=== PATIENT | male | born 1980 | race Caucasian/White ===

== ENCOUNTER 2020-01-06 12:50 | Emergency (ER) | payer OTHER, SELFPAY ==
--- NOTE | 2020-01-06 13:23 | RAD REPORT ---
EXAM DESCRIPTION: RAD - Chest Single View - 01/06/2020 1:18 pm CLINICAL HISTORY: CHEST PAIN Chest pain. COMPARISON: CHEST PA AND LAT 2 VIEW dated 06/27/2012 FINDINGS: Portable technique limits examination quality. The lungs are grossly clear. The heart is normal in size. No displaced fractures. IMPRESSION: No acute intrathoracic process suspected.
[2020-01-06 13:45] LABS: Absolute Lymphocytes (CBC) 2.3 K/uL (0.7-4.9); Basophils % 0.7 % (0-1.3); Hematocrit 40.5 % (39.6-49.0); Lymphocytes % 25.7 % (15.3-44.8); MPV 8.9 fL (7.6-11.3)
[2020-01-06 14:01] LABS: ALT/SGPT 15 U/L (12-78); AST/SGOT 11 U/L (15-37); Albumin 3.6 g/dL (3.4-5.0); Alkaline Phosphatase 76 U/L (45-117); BUN Blood Urea Nitrogen 8 mg/dL (7-18); Bicarbonate 30 mmol/L (21-32); Bilirubin Direct 0.1 mg/dL (0-0.2); Bilirubin Total 0.3 mg/dL (0.2-1.0); Glucose Level 90 mg/dL (74-106); Lipase 309 U/L (73-393); Magnesium 2.2 mg/dL (1.8-2.4); NT PRO-BNP 59 pg/mL (<125); Protein, Total 7.3 g/dL (6.4-8.2); Sodium Level 141 mmol/L (136-145); Troponin (Emerg Dept Use Only) < 0.02 ng/mL (0.0-0.045)
[2020-01-06 14:45] LABS: Urine Blood NEGATIVE (NEG); Urine Glucose NEGATIVE (NEG); Urine Protein NEGATIVE (NEG); Urine Specific Gravity 1.015 (1.005-1.030)
[2020-01-06 15:01] LABS: Barbiturates NEGATIVE (NEGATIVE); Benzodiazepines NEGATIVE (NEGATIVE); Cocaine NEGATIVE (NEGATIVE); METHAMPHETAM NEGATIVE (NEGATIVE); Methadone NEGATIVE (NEGATIVE); Opiates NEGATIVE (NEGATIVE); Phencyclidine NEGATIVE (NEGATIVE); THC Cannibis POSITIVE (NEGATIVE)
--- NOTE | 2020-01-06 16:28 | ER ---
Nurse's Notes [facility] Name: Adalberto Squires Age: 40 yrs Sex: Male : 1980 Arrival Date: 01/06/2020 Time: 12:51 Bed 6 Private MD: Diagnosis: Chest pain, unspecified Presentation: 01/05 13:03 Chief complaint: Patient states: Chest pain, mid sternal started around 0800 today, ca1 radiating to the L arm as numbness. Reports sweating and SOB with CP. Denies cough, injury to the chest. Coronavirus screen: Client denies travel out of the [place] in the last 14 days. At this time, the client does not indicate any symptoms associated with coronavirus-19. Ebola Screen: Patient negative for fever greater than or equal to 101.5 degrees Fahrenheit, and additional compatible Ebola Virus Disease symptoms Patient denies exposure to infectious person. Patient denies travel to an Ebola-affected area in the 21 days before illness onset. No symptoms or risks identified at this time. Initial Sepsis Screen: Does the patient meet any 2 criteria? No. Patient's initial sepsis screen is negative. Does the patient have a suspected source of infection? No. Patient's initial sepsis screen is negative. Risk Assessment: Do you want to hurt yourself or someone else? Patient reports no desire to harm self or others. Onset of symptoms was January 06, 2020 at 08:00. 13:03 Method Of Arrival: Wheelchair ca1 13:03 Acuity: CORINNE 3 ca1 Triage Assessment: 13:05 General: Appears in no apparent distress. uncomfortable, Behavior is cooperative, bp appropriate for age, anxious. Pain: Complains of pain in chest. EENT: No deficits noted. Neuro: No deficits noted. Cardiovascular: Rhythm is sinus rhythm. Respiratory: No deficits noted. GI: No signs and/or symptoms were reported involving the gastrointestinal system. : No signs and/or symptoms were reported regarding the genitourinary system. Derm: No deficits noted. Musculoskeletal: No deficits noted. Historical: - Allergies: 13:05 Tape; ca1 - Home Meds: 13:05 None [Active]; ca1 - PMHx: 13:05 None; ca1 - PSHx: 13:05 None; ca1 - Immunization history:: Adult Immunizations up to date. - Social history:: Smoking status: Patient denies any tobacco usage or history of. Screenin:05 Abuse screen: Denies threats or abuse. Denies injuries from another. Nutritional bp screening: No deficits noted. Tuberculosis screening: No symptoms or risk factors identified. Fall Risk None identified. Assessment: 13:05 General: SEE TRIAGE NOTE. bp 14:15 Reassessment: PT OOB TO RESTROOM. ALL OTHER ORDERS COMPLETED, RESULTS UNREMARKABLE. bp 15:00 Reassessment: VS STABLE ON MONITOR, NO S/S ACUTE DISTRESS AT THIS TIME. bp 15:50 Reassessment: REPEAT TROP DRAWN AND SENT. VS STABLE. NO ACUTE S/S AT THIS TIME. bp 17:10 Reassessment: PT D/C HOME AMBULATORY, DX WITH NONSPECIFIC CHEST PAIN. bp Vital Signs: 13:03 BP 124 / 72; Pulse 77; Resp 16 S; Temp 97.3(TE); Pulse Ox 100% on R/A; Weight 68.04 kg ca1 (R); Height 5 ft. 5 in. (165.10 cm) (R); Pain 4/10; 14:00 BP 106 / 60; Pulse 88; Resp 17; Pulse Ox 100% ; bp 15:00 BP 99 / 76; Pulse 59; Resp 16; Pulse Ox 100% ; bp 15:50 BP 102 / 55; Pulse 63; Resp 17; Pulse Ox 100% ; bp 16:50 BP 109 / 82; Pulse 59; Resp 17; Temp 97.5; Pulse Ox 100% ; bp 13:03 Body Mass Index 24.96 (68.04 kg, 165.10 cm) ca1 ED Course: 12:51 Patient arrived in ED. as 12:54 Elroy Hirsch PA is PHCP. [facility] 12:54 Julian Velez MD is Attending Physician. jmm 13:04 Triage completed. ca1 13:05 Arm band placed on. EKG completed in triage. Results shown to MD. ca1 13:05 Patient has correct armband on for positive identification. Bed in low position. Call bp light in reach. Side rails up X2. environmental monitoring specialist on. Pulse ox on. NIBP on. 13:10 Guido Chavez, RN is Primary Nurse. bp 13:18 XRAY Chest (1 view) In Process Unspecified. EDMS 13:30 Inserted saline lock: 22 gauge in right antecubital area, using aseptic technique. rb1 Blood collected. 15:20 PHCP role handed off by Elroy Hirsch PA pm1 15:20 Julito Taylor NP is PHCP. pm1 17:10 No provider procedures requiring assistance completed. IV discontinued, intact, bp bleeding controlled, No redness/swelling at site. Pressure dressing applied. Patient maintains SpO2 saturation greater than 95% on room air. Administered Medications: No medications were administered Outcome: 16:27 Discharge ordered by MD. pm1 17:10 Discharged to home ambulatory, with family. bp 17:10 Condition: stable 17:10 Discharge instructions given to patient, Instructed on discharge instructions, follow up and referral plans. Demonstrated understanding of instructions, follow-up care. 17:15 Patient left the ED. bp Signatures: Dispatcher [employer] EDMS Elroy Hirsch PA PA jmm Martinez, Amelia as Barber, Rebecca RN RN rb1 Julito Taylor NP AEROSPACE ENGINEER OFFICER [employer] pm1 Guido Chavez RN RN bp Pauline Blum RN RN ca1 Corrections: (The following items were deleted from the chart) 14:18 14:00 BP 159 / 90; Pulse 56bpm; Resp 17bpm; Pulse Ox 100%; bp bp
--- NOTE | 2020-01-06 16:28 | EDPHYS ---
Physician Documentation [facility] Name: Adalberto Squires Age: 40 yrs Sex: Male : 1980 Arrival Date: 01/06/2020 Time: 12:51 Bed 6 Private MD: ED Physician Julian Velez HPI: 01/05 13:04 This 40 yrs old Male presents to ER via Unassigned with complaints of Chest jmm Tightness, Arm Pain. 13:04 The patient or guardian reports chest pain that is located primarily in the substernal jmm area. Onset: gradually, at 07:30. The pain radiates to the left arm, the right arm. Associated signs and symptoms: Pertinent positives: diaphoresis, shortness of breath. The chest pain is described as a pressure. Duration: The patient or guardian reports a single episode, that is still ongoing. Modifying factors: The symptoms are alleviated by nothing. the symptoms are aggravated by nothing. This is a 40 year old male with no chronic medical conditions that presents to the ED with complaints of substernal chest pain which began this morning around 0730 am. Pain worsened later in the morning. Pain radiated to the left and right arm. Historical: - Allergies: 13:05 Tape; ca1 - Home Meds: 13:05 None [Active]; ca1 - PMHx: 13:05 None; ca1 - PSHx: 13:05 None; ca1 - Immunization history:: Adult Immunizations up to date. - Social history:: Smoking status: Patient denies any tobacco usage or history of. ROS: 13:04 Constitutional: Negative for fever, chills, and weight loss. jmm 13:04 Respiratory: Negative for shortness of breath, cough, wheezing, and pleuritic chest pain. 13:04 Cardiovascular: Positive for chest pain. 13:04 All other systems are negative. Exam: 13:04 Constitutional: This is a well developed, well nourished patient who is awake, alert, jmm and in no acute distress. Head/Face: atraumatic. Eyes: EOMI, no conjunctival erythema appreciated ENT: Moist Mucus Membranes Neck: Trachea midline, Supple Chest/axilla: Normal chest wall appearance and motion. Cardiovascular: Regular rate and rhythm. No edema appreciated Respiratory: Normal respirations, no respiratory distress appreciated Abdomen/GI: Non distended, soft Back: Normal ROM Skin: General appearance color normal MS/ Extremity: Moves all extremities, no obvious deformities appreciated, no edema noted to the lower extremities Neuro: Awake and alert, normal gait Psych: Behavior is normal, Mood is normal, Patient is cooperative and pleasant 13:04 ECG was reviewed by the Attending Physician. Vital Signs: 13:03 BP 124 / 72; Pulse 77; Resp 16 S; Temp 97.3(TE); Pulse Ox 100% on R/A; Weight 68.04 kg ca1 (R); Height 5 ft. 5 in. (165.10 cm) (R); Pain 4/10; 14:00 BP 106 / 60; Pulse 88; Resp 17; Pulse Ox 100% ; bp 15:00 BP 99 / 76; Pulse 59; Resp 16; Pulse Ox 100% ; bp 15:50 BP 102 / 55; Pulse 63; Resp 17; Pulse Ox 100% ; bp 16:50 BP 109 / 82; Pulse 59; Resp 17; Temp 97.5; Pulse Ox 100% ; bp 13:03 Body Mass Index 24.96 (68.04 kg, 165.10 cm) ca1 MDM: 13:02 Patient medically screened. [facility] 16:27 Data reviewed: vital signs. Data interpreted: Pulse oximetry: on room air is 100 %. pm1 Interpretation: normal. Counseling: I had a detailed discussion with the patient and/or guardian regarding: the historical points, exam findings, and any diagnostic results supporting the discharge/admit diagnosis, lab results, radiology results, the need for outpatient follow up, to return to the emergency department if symptoms worsen or persist or if there are any questions or concerns that arise at home. 01/05 13:03 Order name: Basic Metabolic Panel; Complete Time: 14:06 [facility] 01/05 13:03 Order name: CBC with Diff; Complete Time: 13:52 [facility] 01/05 13:03 Order name: LFT's; Complete Time: 14:06 [facility] 01/05 13:03 Order name: Magnesium; Complete Time: 14:06 [facility] 01/05 13:03 Order name: NT PRO-BNP; Complete Time: 14:06 [facility] 01/05 13:03 Order name: PT-INR; Complete Time: 13:52 [facility] 01/05 13:03 Order name: Troponin (emerg Dept Use Only); Complete Time: 14:06 [facility] 01/05 13:03 Order name: XRAY Chest (1 view); Complete Time: 13:25 [facility] 01/05 13:03 Order name: EKG; Complete Time: 13:03 [facility] 01/05 13:03 Order name: Lipase; Complete Time: 14:06 [facility] 01/05 13:03 Order name: D-Dimer; Complete Time: 13:52 [facility] 01/05 13:03 Order name: Urine Drug Screen; Complete Time: 15:08 [facility] 01/05 14:33 Order name: Urine Dipstick--Ancillary (enter results); Complete Time: 14:51 01/05 15:10 Order name: Troponin (emerg Dept Use Only): Draw at 330; Complete Time: 16:26 [facility] 01/05 13:03 Order name: Cardiac monitoring; Complete Time: 13:05 [facility] 01/05 13:03 Order name: EKG - Nurse/Tech; Complete Time: 13:05 [facility] 01/05 13:03 Order name: IV Saline Lock; Complete Time: 14:18 [facility] 01/05 13:03 Order name: Labs collected and sent; Complete Time: 14:18 [facility] 01/05 13:03 Order name: O2 Per Protocol; Complete Time: 13:05 [facility] 01/05 13:03 Order name: O2 Sat Monitoring; Complete Time: 13:05 [facility] 01/05 13:03 Order name: Urine Dipstick-Ancillary (obtain specimen); Complete Time: 14:18 jmm EC:04 Rate is 69 beats/min. Rhythm is regular, Sinus arrythmia. QRS [place] is Normal. [place] jmm interval is normal. QRS interval is normal. QT interval is normal. No Q waves. T waves are Normal. No ST changes noted. Reviewed by me. Administered Medications: No medications were administered Disposition: 18:41 Co-signature as Attending Physician, Julian Velez MD. rn Disposition: 01/06/20 16:27 Discharged to Home. Impression: Chest pain, unspecified. - Condition is Stable. - Discharge Instructions: Nonspecific Chest Pain. - Medication Reconciliation Form, Thank You Letter, Antibiotic Education, Prescription Opioid Use form. - Follow up: Emergency Department; When: As needed; Reason: Worsening of condition. Follow up: Private Physician; When: 2 - 3 days; Reason: Recheck today's complaints, Continuance of care, Re-evaluation by your physician. - Problem is new. - Symptoms have improved. Signatures: Dispatcher [employer] EDElroy Song PA PA jmm Nieto, Roman, MD MD rn Marinas, Patrick, SENIOR LIVING SALES COUNSELOR SENIOR LIVING SALES COUNSELOR pm1 Guido Chavez RN RN bp Acob, Pauline RN RN ca1 Corrections: (The following items were deleted from the chart) 17:15 16:27 01/06/2020 16:27 Discharged to Home. Impression: Chest pain, unspecified. bp Condition is Stable. Forms are Medication Reconciliation Form, Thank You Letter, Antibiotic Education, Prescription Opioid Use. Follow up: Emergency Department; When: As needed; Reason: Worsening of condition. Follow up: Private Physician; When: 2 - 3 days; Reason: Recheck today's complaints, Continuance of care, Re-evaluation by your physician. Problem is new. Symptoms have improved. pm1
--- NOTE | 2020-01-07 12:25 | EKG ---
Test Date: 2020-01-06 Test Time: 13:01:08 Creative Writing Teacher: TYRESE MEASUREMENT RESULTS: Intervals: Rate: 69 UT: 160 QRSD: 98 QT: 402 QTc: 430 [place]: P: 72 UT: 160 QRS: 46 T: 54 INTERPRETIVE STATEMENTS: Normal sinus rhythm with sinus arrhythmia Normal ECG No previous ECG available for comparison Electronically Signed On 01-07-20 12:22:54 CDT by Michael Del Valle
[2020-01-08 20:05] VITALS: O2SAT 100
[2020-01-08 20:10] VITALS: BP 109/82; TEMP 97.5
== END 2020-01-06 17:15 | disposition home or self-care (01) ==
LOC: ER 12:50
DX: R07.9 Chest pain, unspecified (principal)
CPT/HCPCS: 36415; 71045; 80048; 80076; 80307; 81003; 83690; 83735; 83880; 84484; 85025; 85379; 85610; 93005; 99285